=== PATIENT | male | born 2000 | race Caucasian/White ===

== ENCOUNTER 2024-05-10 17:42 | Emergency (ER) | payer MEDICAID ==
[~2024-05-10] VITALS: Ht 152.4 cm; Wt 117.0 kg
[2024-05-10 17:52] VITALS: BP_SYST 145; PULSE 80; RESP 18; TEMP 98.5; O2SAT 99
[2024-05-10] MEDS ORDERED: IBUP-2018 PO (19:28)
[2024-05-10] MEDS ORDERED: HYDR-3917 PO (19:28)
[2024-05-10] MEDS ORDERED: PENI500T PO (19:33)
[2024-05-10 19:36] VITALS: BP_SYST 132; PULSE 76; RESP 19; TEMP 98.5; O2SAT 100
== END 2024-05-10 19:36 | disposition home or self-care (01) ==
LOC: SED 17:42
DX: K02.9 Dental caries, unspecified (principal); Z79.899 Other long term (current) drug therapy; Z79.2 Long term (current) use of antibiotics
CPT/HCPCS: 99283